=== PATIENT | female | born 1960 | race Caucasian/White ===

== ENCOUNTER 2025-02-09 18:06 | Inpatient (IN) | payer MEDICARE, OTHER ==
[~2025-02-09] VITALS: Ht 157.5 cm; Wt 76.4 kg
[2025-02-09 21:13] LABS: PLATELET COUNT (AUTO) 299 K/uL (150-450); RED BLOOD CELL COUNT(AUTO) 4.94 MIL/uL (4.00-5.20); RED CELL DISTRIBUTION WIDTH 13.2 % (11.5-14.5); WHITE BLOOD COUNT (AUTO) 6.7 K/uL (4.5-11.0)
[2025-02-09 21:20] LABS: CALCIUM, TOTAL 8.7 mg/dL (8.8-10.5); CREATININE 0.83 mg/dL (0.60-1.30); GLOMERULAR FILTR. RATE CALC > 60 mL/min (>60); GLUCOSE,RANDOM 119 mg/dL (70-110); SODIUM SERUM 141 mmol/L (136-145); UREA NITROGEN, BLOOD 19 mg/dL (7-18)
[2025-02-09 21:42] LABS: COVID AG,FIA SOURCE NASAL SWAB
[2025-02-09 22:02] LABS: SARS-COV2 (COVID) ANTIGEN,FIA Negative (Negative)
[2025-02-09] MEDS: HYDROCODONE/ACETAMINOPHEN 5-325 MG TABLET PO ONE (23:26)
[2025-02-10] VITALS (9 sets, daily range): BP systolic 98–105; BP diastolic 58–70; PULSE 63–71; RESP 18; TEMP 97.3–97.5; O2SAT 98
[2025-02-10] MEDS: MELATONIN 5 MG TABLET PO ONE (00:23)
[2025-02-10] MEDS: POTASSIUM CHLORIDE 20 MEQ ER TABLET PO ONE ×2 (00:26→10:42)
[2025-02-10] MEDS ORDERED: LOPERAMIDE HCL 2 MG CAPSULE PO PRN (06:15)
[2025-02-10] MEDS ORDERED: GuaiFENesin/D-METHORPHAN [SUGAR-FREE] 200-20MG/10 ML SYRUP UDCUP PO PRN (06:15)
[2025-02-10] MEDS ORDERED: NICOTINE 14 MG/24 HOUR PATCH TD PRN (06:15)
[2025-02-10] MEDS ORDERED: MAG HYDROX/ALUMINUM HYD/SIMETH ES 30 ML SUSPENSION UDCUP PO PRN (06:15)
[2025-02-10] MEDS ORDERED: PETROLATUM,WHITE 28 GM JELLY TP PRN (06:15)
[2025-02-10] MEDS ORDERED: MAGNESIUM HYDROXIDE SUSPENSION 30 ML UDCUP PO PRN (06:15)
[2025-02-10] MEDS ORDERED: ALBUTEROL SULFATE HFA 90 MCG/PUFF 8 GM INHALER IH PRN (06:15)
[2025-02-10] MEDS ORDERED: ONDANSETRON 4 MG TABLET PO PRN (06:15)
[2025-02-10] MEDS ORDERED: LACTULOSE 20 GM/30 ML SOLUTION UDCUP PO PRN (09:15)
[2025-02-10] MEDS: FUROSEMIDE 40 MG TABLET PO SCH (10:42)
[2025-02-10] MEDS: ACETAMINOPHEN 325 MG TABLET PO PRN (11:02)
[2025-02-10] MEDS: DULoxetine HCL 20 MG CAPSULE PO SCH (11:30)
[2025-02-10] MEDS: BACLOFEN 10 MG TABLET PO SCH (12:33)
[2025-02-10] MEDS: HYDROCODONE/ACETAMINOPHEN 5-325 MG TABLET PO PRN (12:33)
[2025-02-10] MEDS: TOPIRAMATE 100 MG TABLET PO SCH (20:54)
[2025-02-10] MEDS: MELATONIN 5 MG TABLET PO SCH (20:55)
[2025-02-11] VITALS (7 sets, daily range): BP systolic 100–105; BP diastolic 53–69; PULSE 66–75; RESP 18; TEMP 97.5–97.8; O2SAT 98
[2025-02-11] MEDS: IBUPROFEN 400 MG TABLET PO PRN (01:39)
[2025-02-11 07:54] LABS: PLATELET COUNT (AUTO) 274 K/uL (150-450); RED BLOOD CELL COUNT(AUTO) 4.72 MIL/uL (4.00-5.20); RED CELL DISTRIBUTION WIDTH 13.0 % (11.5-14.5); WHITE BLOOD COUNT (AUTO) 4.7 K/uL (4.5-11.0)
[2025-02-11 08:21] LABS: ASPARTATE AMINOTRANSFERASE 16 U/L (15-37); CALCIUM, TOTAL 8.6 mg/dL (8.8-10.5); CHOL/HDL RATIO 4.0 (3.9-5.7); CREATININE 0.46 mg/dL (0.60-1.30); GLOMERULAR FILTR. RATE CALC > 60 mL/min (>60); GLUCOSE,RANDOM 104 mg/dL (70-110); LDL CHOL (CALC.) 115 mg/dL (0-130); SODIUM SERUM 139 mmol/L (136-145); TOTAL PROTEIN, SERUM 6.5 g/dL (6.4-8.2); UREA NITROGEN, BLOOD 18 mg/dL (7-18)
[2025-02-11] MEDS: POTASSIUM CHLORIDE 20 MEQ ER TABLET PO SCH (09:55)
[2025-02-11] MEDS: BISACODYL 10 MG RECTAL RECTAL SUPPOSITORY PR PRN (15:55)
[2025-02-12] MEDS: DOCUSATE SODIUM 100 MG CAPSULE PO PRN (01:25)
[2025-02-12 09:34] VITALS: BP 100/60; PULSE 78; RESP 18; TEMP 98.1; O2SAT 97
[2025-02-12] MEDS: PEG 400/HYPROMELLOSE/GLYCERIN 15 ML OPHTHALMIC SOLUTION OU PRN (12:33)
[2025-02-12 12:48] VITALS: BP 115/50; PULSE 78; RESP 18
[2025-02-12 13:48] VITALS: O2SAT 18
[2025-02-12 20:48] VITALS: BP 108/76; PULSE 89; RESP 18; TEMP 98.5; O2SAT 98
[2025-02-12 23:11] VITALS: BP 105/68; PULSE 68; RESP 18; O2SAT 100
[2025-02-13] MEDS: ZOLPIDEM TARTRATE 10 MG TABLET PO PRN (00:30)
[2025-02-13 10:06] VITALS: BP 123/73; PULSE 68; RESP 18; TEMP 97.6; O2SAT 95
[2025-02-13 11:38] VITALS: RESP 16
[2025-02-13] MEDS ORDERED: MELA5TAB40 PO (13:46)
[2025-02-13] MEDS ORDERED: TOPI100 PO (13:46)
[2025-02-13] MEDS ORDERED: DULO20CA23 PO (13:46)
[2025-02-13] MEDS ORDERED: FURO40TA6 PO (15:01)
[2025-02-13] MEDS ORDERED: BACL10TA PO (15:01)
[2025-02-13] MEDS ORDERED: POTA-206 PO (15:02)
== END 2025-02-13 16:27 | DRG 885 ==
LOC: EMS 18:06 → 3EC 02-10 04:10 → 3EI 02-10 04:10 → UNDOADMIN 02-10 04:10
PROVIDERS: ADMIT Psychiatry & Neurology Child & Adolescent Psychiatry; ATTEND Psychiatry & Neurology Child & Adolescent Psychiatry
PROC: GZHZZZZ Group Psychotherapy (ICD-10-PCS; principal; 2025-02-10)
PROC: GZ58ZZZ Individual Psychotherapy, Cognitive-Behavioral (ICD-10-PCS; 2025-02-10)
PROC: GZ56ZZZ Individual Psychotherapy, Supportive (ICD-10-PCS; 2025-02-10)
DX: F33.2 Major depressive disorder, recurrent severe without psychotic features (principal); R45.851 Suicidal ideations; G35.D Multiple sclerosis, unspecified; G43.909 Migraine, unspecified, not intractable, without status migrainosus; E87.6 Hypokalemia; G89.29 Other chronic pain; I89.0 Lymphedema, not elsewhere classified; F41.9 Anxiety disorder, unspecified; M79.604 Pain in right leg; M79.605 Pain in left leg; Z20.822 Contact with and (suspected) exposure to COVID-19; Z74.01 Bed confinement status; G47.00 Insomnia, unspecified; R41.89 Other symptoms and signs involving cognitive functions and awareness
CPT/HCPCS: 80048; 80053; 80061; 83036; 84436; 84443; 85025; 87081; 97110; 97162; 97530; 99285; G0480